=== PATIENT | female | born 1985 | race Caucasian/White ===

== ENCOUNTER 2018-05-08 09:06 | Emergency (ER) | payer SELFPAY ==
[~2018-05-08] VITALS: Ht 170.2 cm; Wt 66.0 kg
[2018-05-08] MEDS ORDERED: ONDANSETRON ODT 8 MG ONE (09:49)
[2018-05-08] MEDS ORDERED: IBUPROFEN 200 MG TABLET ONE (09:49)
[2018-05-08] MEDS ORDERED: HYDROcodone/APAP 10/325 MG TABLET ONE (09:49)
[2018-05-08] MEDS ORDERED: IBUPROFEN 200 MG TABLET PO ONE (10:00)
[2018-05-08] MEDS ORDERED: ONDANSETRON ODT 4 MG PO ONE (10:00)
[2018-05-08] MEDS ORDERED: HYDROcodone/APAP 10/325 MG TABLET PO ONE (10:00)
[2018-05-08 11:15] VITALS: BP 119/84
== END 2018-05-08 11:18 | disposition home or self-care (01) ==
LOC: ED 11:12
DX: S82.61XA Displaced fracture of lateral malleolus of right fibula, initial encounter for closed fracture (principal); F17.200 Nicotine dependence, unspecified, uncomplicated; W01.0XXA Fall on same level from slipping, tripping and stumbling without subsequent striking against object, initial encounter; Y93.89 Activity, other specified; Y92.59 Other trade areas as the place of occurrence of the external cause; Y99.8 Other external cause status
CPT/HCPCS: 29515; 73610; 99284; Q0162